=== PATIENT | male | born 1970 | race Caucasian/White ===

== ENCOUNTER 2023-05-11 13:28 | Emergency (ER) | payer BC, SELFPAY ==
[2023-05-11 13:29] VITALS: BP 175/99; PULSE 61; RESP 20; TEMP 36.9; O2SAT 98; BMI 28.8
--- NOTE | 2023-05-11 15:20 | CT_ITS ---
FINAL REPORT CLINICAL HISTORY: L flank pain, h/o stones FINDINGS: Axial CT images of the abdomen and pelvis were obtained without intravenous contrast. Coronal reformatted images were also obtained.This study was performed with techniques to keep radiation doses as low as reasonably achievable (ALARA). Individualized dose reduction techniques using automated exposure control or adjustment of mA and/or kV according to the patient''s size were employed. Abdomen:The lung bases are clear. Several small bilateral nonobstructing renal stones are seen. There is no evidence of right hydronephrosis. There is mild left hydronephrosis and hydroureter secondary to a 4 mm proximal left ureteral stone at the L3-4 level. There is mild adrenal gland enlargement, favor hyperplasia or adenomas. The liver, spleen and pancreas have an unremarkable, unenhanced appearance. No mass or adenopathy is seen. No inflammatory process is identified. Pelvis: Images of the pelvis reveal no evidence of distal ureteral stone. Multiple diverticula are seen in the sigmoid colon. The appendix is unremarkable. There is a right inguinal hernia containing fat only. No mass or abnormal fluid collection is identified. IMPRESSION: Mild left hydronephrosis and hydroureter secondary to a 4 mm proximal left ureteral stone. Authenticated and ERN
[2023-05-11 15:26] VITALS: BMI 28.8
[2023-05-11 15:33] LABS: Basophils % 0.1 % (0.1-2.0); Eosinophils # 0.1 K/mm3 (0.0-0.4); Eosinophils % 0.4 % (0.1-12.0); Hematocrit 46.1 % (42.0-52.0); Lymphocytes # 1.4 K/mm3 (0.7-4.5); Lymphocytes % 7.8 % (10-50); Mean Corpuscular HGB Conc 34.6 g/dL (31.8-35.4); Mean Corpuscular Hemoglobin 30.7 pg (27.0-31.2); Mean Corpuscular Volume 88.7 fl (80-94); Mean Platelet Volume 9.3 fl (7.4-10.4); Monocytes # 0.9 K/mm3 (0.1-1.0); Monocytes % 4.8 % (1.7-9.3); Neutrophils # 15.7 K/mm3 (1.8-7.8); Neutrophils % 86.8 % (37.0-80.0); Platelet Count 279 K/mm3 (142-424); Red Blood Count 5.19 M/mm3 (4.60-6.20)
--- NOTE | 2023-05-11 15:33 | PC.NURSE ---
Dr. Corado at [facility] for pt eval
[2023-05-11 15:35] LABS: Chloride 103 mmol/L (98-107); MANUAL DIFFERENTIAL MANUAL DIFFERENTIAL (MANUAL DIFF); Potassium 4.2 mmoL/L (3.5-5.1); Sodium 139 mmol/L (136-145)
[2023-05-11 15:37] LABS: Blood Urea Nitrogen 16 mg/dl (9-20); Creatinine Clearance Estimated 81 mL/min (50-200); Estimated Glomerular Filt Rate 58 ml/min (>60); GFR (African American) 70 ML/MIN (>60)
[2023-05-11 15:38] LABS: Alanine Aminotransferase 31 U/L (12-78); Albumin Level 4.8 g/dl (3.5-5.0); Albumin/Globulin Ratio 1.5 (1.1-1.8); Alkaline Phosphatase 106 U/L (38-126); Anion Gap 16.2 mEq/L (5-15); Aspartate Amino Transferase 33 U/L (17-59); Bilirubin,Total 0.4 mg/dl (0.2-1.3); Calcium 9.1 mg/dl (8.4-10.2); Carbon Dioxide 24 mmol/L (22.0-30.0); Globulin 3.2 g/dL (1.3-3.2); Glucose 96 mg/dl (74-100)
[2023-05-11 15:44] LABS: Lymphocytes % 5 % (10-50); Monocytes % 3 % (2-9); Neutrophils % 92 % (42-76); Total Cells Counted 100
[2023-05-11 15:45] LABS: Platelet Estimate Normal; RBC Morphology Normal
[2023-05-11 15:47] LABS: Microscopic, Urine URINE MICROSCOPIC (MICROSCOPIC)
--- NOTE | 2023-05-11 15:50 | [facility].EDGENADL ---
Discharge Plan Disposition Patient Disposition: Home, Self-Care Prescriptions Prescriptions: New tamsulosin [Flomax] 0.4 mg capsule 0.4 mg PO DAILY Qty: 10 0RF ketorolac 10 mg tablet 10 mg PO Q8H 5 Days Qty: 15 0RF ondansetron 4 mg tablet,disintegrating 4 mg PO Q6H PRN (Reason: nausea and vomiting) Qty: 10 0RF Referrals Follow up/Referrals: Maury Champion [Primary Care Provider] - See instructions Activity Restrictions/Add. Instructions Additional Instructions/Restrictions: Call your family doctor to establish care for this visit to the emergency department and schedule follow-up within 48 hours to ensure improvement. If you have any worsening of your condition or any other concerning signs or symptoms, return to the emergency department or your primary care doctor for further evaluation. Take Tylenol 1000 mg every 6 hours (4 times daily) and ibuprofen 400 mg every 6 hours (4 times daily) as needed with food and water to prevent GI upset and kidney damage. Use strainer every time you urinate to try to catch stone. Follow-up with urology at discretion of family doctor. Clinical Impressions Clinical Impression: Ureterolithiasis Discharge ED Provider: Adalberto Corado General Adult HPI General Chief complaint: PAIN Stated complaint: abd/lower back pain, vomiting Time Seen by Provider: 05/11/23 15:19 Mode of Arrival: Family Vehicle Source of Information: Patient and Relative Limitations: No Limitations Description of Symptoms (Recalled from ER Triage Doc. by RN): Pt c/o L flank pain with nausea and vomiting since (05/07). States he has a hx of kidney stones and has not had an attack for several years. States he was doing ok until today when he started to vomit more and difficulty urinating. Denies any documented fever however he has noted chills today. History of Present Illness HPI narrative: 52-year-old male history of numerous kidney stones presenting with left flank pain. Started 4 days prior to arrival. Initially had sharp pain in his flank couple episodes of vomiting that was nonbloody, nonbilious. He has also had episodes of diaphoresis associated with severe pain. Pain is intermittent, mild in intensity and does not radiate at rest, severe in intensity, radiates to his left groin when flaring up. Had another episode today, 05/11, so came to the emergency department for further evaluation. No hematuria, dysuria, nausea or vomiting, fevers or chills, or any other concerns. Related Data Previous Rx's Medication Instructions Recorded ketorolac 10 mg tablet 10 mg PO Q8H 5 days #15 tabs 05/11/23 ondansetron 4 mg disintegrating 4 mg PO Q6H PRN nausea and 05/11/23 tablet vomiting #10 tabs tamsulosin 0.4 mg capsule (Flomax) 0.4 mg PO DAILY #10 caps 05/11/23 Allergies Allergy/AdvReac Type Severity Reaction Status Date / Time No Known Allergies Allergy Verified 05/11/23 15:27 [facility] Disclaimer: The information contained in this section may have been updated after the patient was seen, as this information can be updated by other users. Social History Smoking Status: Current every day smoker alcohol intake: never current occupational status: employed Travel in the last 8 weeks: None ROS Obtained: Yes All systems reviewed & no additional complaints except as documented Physical Exam General General appearance: alert and in no apparent distress Head Head exam: atraumatic and normocephalic Eye Eye exam: Present normal appearance, PERRL and EOMI ENT ENT exam: Present mucous membranes moist Neck Neck exam: Present normal inspection, full ROM and trachea midline Respiratory Respiratory exam: Absent respiratory distress, wheezes, stridor, accessory muscle use or prolonged expiratory phase Cardiovascular Cardiovascular exam: Present normal rhythm Abdominal Exam Abdominal exam: Present soft; Absent distention, tenderness, guarding, rebound, rigidity or normal bowel sounds
[2023-05-11 15:54] LABS: Appearance,Urine CLEAR (Clear); Blood, Urine 3+ (Negative); Color,Urine YELLOW (Yellow); Glucose,Urine (UA) Negative (Negative); Ketones,Urine 1+ (Negative); Leukocyte Esterase,Urine Negative (Negative); Nitrate,Urine Negative (Negative); Protein,Urine TRACE (Negative); Specific Gravity, Urine >= 1.030 (1.005-1.030)
[2023-05-11 16:10] LABS: Bilirubin,Urine 1+ (Negative)
[2023-05-11 16:36] LABS: Mucus,Urine Trace /lpf; Squamous Epithelial Cell,Urine Occasional #/hpf (0-5)
[2023-05-11 16:37] LABS: WBC,Urine Occasional #/hpf (0-3)
[2023-05-11 18:12] VITALS: BP 167/97; PULSE 64; RESP 20; TEMP 36.9; O2SAT 97
== END 2023-05-11 18:13 | disposition home or self-care (01) ==
PROVIDERS: Emergency Provider Emergency Medicine; PCP Pediatrics
DX: N13.0 Hydronephrosis with ureteropelvic junction obstruction (principal); N13.4 Hydroureter; R10.32 Left lower quadrant pain; R11.10 Vomiting, unspecified; F17.210 Nicotine dependence, cigarettes, uncomplicated
CPT/HCPCS: 74176; 80053; 81001; 85007; 85025; 96361; 96374; 96375; 99285; J0131; J2405